=== PATIENT | female | born 1985 | race Caucasian/White ===

== ENCOUNTER 2021-11-11 22:19 | Emergency (ER) | payer OTHER ==
[~2021-11-11] VITALS: Ht 167.6 cm; Wt 113.0 kg
[2021-11-11] MEDS ORDERED: SODIUM CHLORIDE 0.9% 1,000 ML IV ONE (22:45)
[2021-11-11] MEDS ORDERED: MIDAZOLAM HCL 2 MG/2 ML VIAL IV ONE (22:45)
[2021-11-11 23:02] LABS: BASOPHILS % 0.4 % (0.0-2.0); EOSINOPHILS % 1.5 % (0.0-5.0); HEMATOCRIT. 35.4 % (36.0-48.0); HEMOGLOBIN. 11.5 g/dL (12.0-16.0); LYMPHOCYTES % 24.6 % (20.0-50.0); MEAN CORPUSCULAR HEMOGLOBIN 33.8 pg (28.0-32.0); MONOCYTES % 7.5 % (2.0-8.0); PLATELET 210 x1000/uL (130-400); RED BLOOD CELL COUNT 3.41 mill/uL (4.2-5.4); RED CELL DISTRIBUTION WIDTH 13.5 % (11.6-14.6)
[2021-11-11 23:11] LABS: CHLORIDE 108 mEq/L (98-107); HCG SCREEN NEGATIVE
[2021-11-11 23:18] LABS: ETHANOL BLOOD < 10 mg/dL
[2021-11-12] MEDS ORDERED: ACETAMINOPHEN 325MG TABLET PO ONE (03:45)
[2021-11-12 04:00] VITALS: BP 126/70
== END 2021-11-12 04:07 | disposition home or self-care (01) ==
LOC: ER 22:19
DX: T40.711A Poisoning by cannabis, accidental (unintentional), initial encounter (principal); Y92.9 Unspecified place or not applicable; D50.9 Iron deficiency anemia, unspecified; F41.9 Anxiety disorder, unspecified; F90.9 Attention-deficit hyperactivity disorder, unspecified type
CPT/HCPCS: 36415; 80053; 80320; 82962; 84703; 85025; 96361; 96374; 99285; J2250; J7030; G0480